=== PATIENT | male | born 1955 | race Caucasian/White ===

== ENCOUNTER 2021-09-27 13:00 | Outpatient (CLI) | payer BC, SELFPAY | END 2021-09-27 13:01 | disposition home or self-care (01) | PROVIDERS: PCP Internal Medicine; Visit Provider Internal Medicine | DX: H91.90 Unspecified hearing loss, unspecified ear (principal) | CPT/HCPCS: 92557; 92567 ==

== ENCOUNTER 2021-10-14 11:42 | Outpatient (RCR) | payer BC, SELFPAY | END 2021-10-14 23:59 | disposition home or self-care (01) | LOC: ANHAUDIO 11:42 | PROVIDERS: PCP Internal Medicine; Visit Provider Internal Medicine | DX: Z46.1 Encounter for fitting and adjustment of hearing aid (principal) | CPT/HCPCS: V5261 ==

== ENCOUNTER 2023-09-07 14:38 | Outpatient (CLI) | payer MEDICARE, OTHER, SELFPAY | END 2023-09-07 14:39 | disposition home or self-care (01) | LOC: ANHAUDIO 14:39 | PROVIDERS: PCP Family Medicine; Visit Provider Family Medicine | DX: H90.3 Sensorineural hearing loss, bilateral (principal) | CPT/HCPCS: 92557 ==